=== PATIENT | male | born 1955 | race Caucasian/White ===

== ENCOUNTER 2017-12-17 23:42 | Emergency (ER) | payer OTHER ==
[~2017-12-17] VITALS: Ht 182.9 cm; Wt 104.3 kg
[~2017-12-17 23:42] MED LIST: ASPI-630 PO; CIPR500T PO; HYDR50TA6 PO; PHEN-443 PO; TAMS0.4C2 PO
--- NOTE | 2017-12-18 00:18 | PHYS DOC ---
Past History Past Medical History: Hypertension, Prostatitis, Other Past Surgical History: Tonsillectomy Alcohol Use: Heavy Drug Use: None Adult General Chief Complaint Chief Complaint: URINARY RETENTION HPI HPI Patient is a 62 year old male who presents with complaint of urinary retention. Patient states his symptoms started earlier this evening. Patient states that he is having a significant amount of lower abdominal pressure at this time. Patient has history of benign prostatic hyperplasia and has had previous episodes of urinary retention. Patient's last episode took place approximately one year ago. Patient states that he has followed with Dr. Lundberg of urology in the past for his previous episodes. The patient states that he is currently on twice daily Flomax and states that he is taking the maximum dose daily. Patient denies any fever, dysuria, nausea, or vomiting and states that he felt that his baseline state of health before this evening. Review of Systems Review of Systems Constitutional: Denies fever or chills [] Eyes: Denies change in visual acuity, redness, or eye pain [] HENT: Denies nasal congestion or sore throat [] Respiratory: Denies cough or shortness of breath [] Cardiovascular: Denies chest pain or edema[] GI: Denies abdominal pain, nausea, vomiting, bloody stools or diarrhea [] : Urinary retention[] Musculoskeletal: Denies back pain or joint pain [] Integument: Denies rash or skin lesions [] Neurologic: Denies headache, focal weakness or sensory changes [] All other systems were reviewed and found to be within normal limits, except as documented in this note. Allergies Allergies Allergies Coded Allergies Type Severity Reaction Last Updated Verified Penicillins Allergy Intermediate 02/17/16 Yes Physical Exam Physical Exam Constitutional: Alert, afebrile, appears in [id number] discomfort. [] HENT: Normocephalic, atraumatic, bilateral external ears normal, oropharynx moist, no oral exudates, nose normal. [] Eyes: PERRLA, EOMI, conjunctiva normal, no discharge. [] Neck: Normal range of motion, no tenderness, supple, no stridor. [] Cardiovascular:Heart rate regular rhythm, no murmur [] Lungs & Thorax: Bilateral breath sounds clear to auscultation [] Abdomen: Bowel sounds normal, soft, palpable distended bladder in suprapubic region of abdomen no masses, no pulsatile masses. [] Skin: Warm, dry, no erythema, no rash. [] Back: No tenderness, no CVA tenderness. [] Extremities: No tenderness, no cyanosis, no clubbing, ROM intact, no edema. [] Neurologic: Alert and oriented X 3, normal motor function, normal sensory function, no focal deficits noted. [] EKG EKG Not performed[] Radiology/Procedures Radiology/Procedures Not performed[] Course & Med Decision Making Course & Med Decision Making Pertinent Labs and Imaging studies reviewed. (See chart for details) The patient had a Hendrix catheter placed in the emergency department with immediate output of 650 mL of urine. Patient symptoms have improved. Patient states he feels much better. The patient was converted to a leg bag for his Hendrix catheter and will be discharged with a Hendrix catheter in place with recommendation to follow-up with urology in the next 5-7 days for reevaluation. Advised return emergency department for any worsening symptoms. Patient voiced understanding and in agreement with treatment plan. Dragon Disclaimer Dragon Disclaimer This electronic medical record was generated, in whole or in part, using a voice recognition dictation system. Departure Departure: Impression: Primary Impression: Urinary retention Disposition: HOME, SELF-CARE Condition: IMPROVED Referrals: PCP,UNKNOWN (PCP) DARLENE AMAYA MD Patient Instructions: Urinary Retention, Acute, Male Additional Instructions: Follow-up with urology in the next 5-7 days for reevaluation. Return to the emergency department for any worsening symptoms. Scripts Ciprofloxacin Hcl (CIPRO) 250 Mg Tablet 1 TAB PO BID, #10 TAB Prov: BOBO LOYA MD 12/18/17 BOBO LOYA MD Dec 18, 2017 00:18
[2017-12-18 00:41] LABS: CALCIUM 8.6 mg/dL (8.5-10.1); GFR 75.2; POTASSIUM 3.5 mmol/L (3.5-5.1)
[2017-12-18 00:47] LABS: BACTERIA,URINE 0 /HPF (0-FEW); BILIRUBIN,URINE NEG (NEG); CLARITY,URINE CLEAR; COLOR,URINE YELLOW; GLUCOSE,URINE NEG (NEG); NITRITE,URINE NEG (NEG); RBC,URINE 0 /HPF (0-2); SQUAMOUS EPITHELIAL CELL,UR OCC /LPF; UROBILINOGEN,URINE 0.2 mg/dL (0.2 mg/dL); WBC,URINE RARE /HPF (0-4)
[2017-12-18] MEDS ORDERED: CIPR250T30 PO (00:54)
[2017-12-18 01:10] VITALS: BP 120/75
== END 2017-12-18 01:12 | disposition home or self-care (01) ==
LOC: ER 23:42
DX: R33.9 Retention of urine, unspecified (principal); N40.1 Benign prostatic hyperplasia with lower urinary tract symptoms; I10 Essential (primary) hypertension; F10.20 Alcohol dependence, uncomplicated; Z88.0 Allergy status to penicillin
CPT/HCPCS: 36415; 51702; 80048; 81001; 99284-25

== ENCOUNTER 2017-12-22 23:40 | Emergency (ER) | payer OTHER ==
[~2017-12-22] VITALS: Ht 182.9 cm; Wt 108.3 kg
[2017-12-22 23:40] VITALS: BP 142/89
[~2017-12-22 23:40] MED LIST changes: +CIPR250T30 PO
--- NOTE | 2017-12-22 23:58 | PHYS DOC ---
Past History Past Medical History: Hypertension, Prostatitis, Other Past Surgical History: Tonsillectomy Alcohol Use: Heavy Drug Use: None Adult General Chief Complaint Chief Complaint: URINARY RETENTION HPI HPI Patient is a 62-year-old male presents with complaints of urinary retention. Approximately a week ago the patient had a Hendrix placed because of urinary retention problems went to see his doctor today and they had the Hendrix removed. Patient was doing well initially but then shortly before arrival to the ER he started having problems with voiding so he came over as he couldn't urinate. Patient has not complaints Review of Systems Review of Systems Constitutional: Denies fever or chills [] HENT: No complaints Respiratory: No complaints Cardiovascular: No complaints GI: No complaints : Urinary retention Musculoskeletal: Denies back pain or joint pain [] Integument: Denies rash or skin lesions [] Neurologic: Denies headache, focal weakness or sensory changes [] All other systems were reviewed and found to be within normal limits, except as documented in this note. Allergies Allergies Allergies Coded Allergies Type Severity Reaction Last Updated Verified Penicillins Allergy Intermediate 02/17/16 Yes Physical Exam Physical Exam Constitutional: Well developed, well nourished, no acute distress, non-toxic appearance. [] HENT: Normocephalic, atraumatic, Eyes: EOMI, conjunctiva normal, no discharge. [] Neck: Normal range of motion, trachea Midline, no stridor. [] Cardiovascular:Heart rate regular rhythm, no murmur, normal perfusion Lungs & Thorax: Bilateral breath sounds clear to auscultation, no tachypnea Abdomen: Bowel sounds normal, soft, no tenderness, no masses, no pulsatile masses. : No lesions, no swelling, no discharge [] Skin: Warm, dry, no erythema, no rash. [] Back: Normal range of motion Extremities: No tenderness, no DVT, ROM intact, no edema. [] Neurologic: Alert and oriented X 3, normal motor function, ambulates in the ED with normal gait and without assistance, no focal deficits noted. [] Psychologic: Affect normal, judgement normal, mood normal. [] EKG EKG [] Radiology/Procedures Radiology/Procedures [] Course & Med Decision Making Course & Med Decision Making Pertinent Labs and Imaging studies reviewed. (See chart for details) [] Dragon Disclaimer Dragon Disclaimer This electronic medical record was generated, in whole or in part, using a voice recognition dictation system. Departure Departure: Impression: Primary Impression: Urinary retention Disposition: HOME, SELF-CARE Condition: STABLE Referrals: PCP,UNKNOWN (PCP) Please follow with your PCP or urologist in 2 days and discuss this ED visit Patient Instructions: Hendrix Catheter Care, Adult Beatris PICKENS MD Dec 22, 2017 23:58
[2017-12-23 00:20] LABS: BACTERIA,URINE 0 /HPF (0-FEW); BILIRUBIN,URINE NEG (NEG); CLARITY,URINE CLEAR; COLOR,URINE YELLOW; GLUCOSE,URINE NEG (NEG); NITRITE,URINE NEG (NEG); UROBILINOGEN,URINE 0.2 mg/dL (0.2 mg/dL); WBC,URINE 0 /HPF (0-4)
== END 2017-12-23 00:27 | disposition home or self-care (01) ==
LOC: ER 23:40
DX: R33.9 Retention of urine, unspecified (principal); I10 Essential (primary) hypertension; F10.20 Alcohol dependence, uncomplicated; Z88.0 Allergy status to penicillin
CPT/HCPCS: 51702; 81001; 99284

== ENCOUNTER 2019-02-21 13:08 | Emergency (ER) | payer MEDICARE, OTHER ==
[~2019-02-21] VITALS: Ht 182.9 cm; Wt 104.3 kg
[2019-02-21 13:08] VITALS: BP 123/73
[2019-02-21] MEDS ORDERED: IBUPROFEN 600 MG TABLET. PO ONE (13:45)
--- NOTE | 2019-02-21 14:24 | RAD ---
Examination: 3 views of the right foot History: History of right foot pain Comparison: None available. Findings: The alignment of the tarsometatarsal joints, metatarsophalangeals, interphalangeal joints grossly appears unremarkable. There is no acute fracture or dislocation identified. Impression: No acute osseous findings.
[2019-02-21] MEDS ORDERED: MELO7.5T29 PO (14:45)
--- NOTE | 2019-02-21 14:45 | PHYS DOC ---
Past History Past Medical History: Hypertension, Prostatitis, Other Past Surgical History: Tonsillectomy Alcohol Use: Heavy Drug Use: None Adult General Chief Complaint Chief Complaint: FOOT INJURY PAIN HPI HPI Patient is a 63-year-old male presents complaining of right foot pain. Some tenderness course the night patient got out of bed and kicked the metal frame of his bed accidentally. He has been able to walk on it with increased pain. No home medicines were taken. No knee or ankle pain. No bleeding. Pain is moderate in intensity.[] Review of Systems Review of Systems Constitutional: Denies fever or chills [] Eyes: Denies change in visual acuity, redness, or eye pain [] HENT: Denies nasal congestion or sore throat [] Respiratory: Denies cough or shortness of breath [] Cardiovascular: No chest pain or palpitations[] GI: Denies abdominal pain, nausea, vomiting, bloody stools or diarrhea [] : Denies dysuria or hematuria [] Musculoskeletal: Denies back pain, see history of present illness[] Integument: Denies rash or skin lesions [] Neurologic: Denies headache, focal weakness or sensory changes [] Endocrine: Denies polyuria or polydipsia [] All other systems were reviewed and found to be within normal limits, except as documented in this note. Current Medications Current Medications Current Medications Medications (Trade) Dose Ordered Sig/Juliet Start Time Stop Time Status Last Admin Dose Admin Ibuprofen (Motrin) 600 mg 1X ONCE 02/21/19 13:45 02/21/19 13:52 DC 02/21/19 13:46 600 MG Allergies Allergies Allergies Coded Allergies Type Severity Reaction Last Updated Verified Penicillins Allergy Intermediate 02/17/16 Yes Physical Exam Physical Exam Constitutional: Well developed, well nourished, no acute distress, non-toxic appearance. [] HENT: Normocephalic, atraumatic, bilateral external ears normal, oropharynx moist, no oral exudates, nose normal. [] Eyes: PERRLA, EOMI, conjunctiva normal, no discharge. [] Neck: Normal range of motion, no tenderness, supple, no stridor. [] Cardiovascular:Heart rate regular rhythm, no murmur [] Lungs & Thorax: Bilateral breath sounds clear to auscultation [] Abdomen: Not examined[] Skin: Warm, dry, no erythema, no rash. [] Back: No tenderness, no CVA tenderness. [] Extremities: Right foot has tenderness medial aspect, along the metatarsal. There is no laxity. Patient has full active range of motion of the toes as well as the ankle joint. Patient is distally neurovascularly intact. No pain with axial loading. A joint above and joined below were evaluated and were normal. The other 3 extremities show: No tenderness, no cyanosis, no clubbing, ROM inta ct, no edema. [] Neurologic: Alert and oriented X 3, normal motor function, normal sensory function, no focal deficits noted. [] Psychologic: Affect normal, judgement normal, mood normal. [] Current Patient Data Vital Signs Vital Signs Date Time Temp Pulse Resp B/P (MAP) Pulse Ox O2 Delivery O2 Flow Rate FiO2 02/21/19 13:08 98.9 78 20 96 Room Air EKG EKG [] Radiology/Procedures Radiology/Procedures PROCEDURE: FOOT RIGHT 3V Examination: 3 views of the right foot History: History of right foot pain Comparison: None available. Findings: The alignment of the tarsometatarsal joints, metatarsophalangeals, interphalangeal joints grossly appears unremarkable. There is no acute fracture or dislocation identified. Impression: No acute osseous findings.[] Course & Med Decision Making Course & Med Decision Making Pertinent Labs and Imaging studies reviewed. (See chart for details) ED course: Patient arrived, was placed in bed, and tolerated exam well. He was transported to and from radiology with any complications. He did get pain relief with the oral medications administered. After the return of the imaging findings, these were discussed with the patient voiced understanding. He was placed in a postop shoe to help with immobilization. He was distal neurovascularly intact after this application. He was discharged in improved co ndition. Medical decision making: There is no evidence of a fracture or dislocation. No evidence of neurologic or vascular compromise. No evidence of intractable pain. No evidence of gout or osteomyelitis.[] Dragon Disclaimer Dragon Disclaimer This electronic medical record was generated, in whole or in part, using a voice recognition dictation system. Departure Departure: Impression: Primary Impression: Contusion of right foot Disposition: HOME, SELF-CARE Condition: IMPROVED Referrals: BETTYE SCHILLING MD (PCP) Follow-up in 2 days Patient Instructions: Foot Contusion Additional Instructions: Follow-up with your regular doctor in 2 days. Walk as tolerated. Return to the ER if worsening pain or any other concerns. Scripts Meloxicam (MELOXICAM) 7.5 Mg Tablet 7.5 MG PO DAILY for PAIN, #20 TAB Prov: DERREK TRONCOSO DO 02/21/19 Problem Qualifiers Primary Impression: Contusion of right foot Encounter type: initial encounter Qualified Codes: S90.31XA - Contusion of right foot, initial encounter DERREK TRONCOSO DO Feb 21, 2019 14:45
== END 2019-02-21 14:51 | disposition home or self-care (01) ==
LOC: ER 13:08
DX: S90.31XA Contusion of right foot, initial encounter (principal); I10 Essential (primary) hypertension; F10.20 Alcohol dependence, uncomplicated; Z88.0 Allergy status to penicillin; Y90.9 Presence of alcohol in blood, level not specified; W22.03XA Walked into furniture, initial encounter; Y93.89 Activity, other specified; Y92.89 Other specified places as the place of occurrence of the external cause; Y99.8 Other external cause status
CPT/HCPCS: 73630; 99284

== ENCOUNTER → 2019-07-27 | Outpatient (CLI) | payer MEDICARE, OTHER ==
[~2019-07-27] MED LIST changes: +MELO7.5T29 PO
--- NOTE | 2019-07-27 12:10 | CARD ---
MR#: [id number] Date of Study: 07/27/2019 Ordering Physician: BETTYE SCHILLING, Referring Physician: BETTYE SCHILLING, Tech: APPROVED REPORT EXAM: Two-dimensional and M-mode echocardiogram with Doppler and color Doppler. INDICATION Arrhythmia Tachycardia RISK FACTORS Hypertension Hyperlipidemia Previous smoker 2D DIMENSIONS RVDd3.8 (2.9-3.5cm)Left Atrium(2D)3.5 (1.6-4.0cm) IVSd1.2 (0.7-1.1cm)Aortic Root(2D)3.8 (2.0-3.7cm) LVDd5.2 (3.9-5.9cm)LVOT Diameter2.2 (1.8-2.4cm) PWd1.0 (0.7-1.1cm)LVDs3.2 (2.5-4.0cm) FS (%) 38.0 %SV88.6 ml LVEF(%)67.8 (>50%) Aortic Valve AoV Peak Joon.115.3cm/sAoV VTI23.2cm AO Peak GR.5.3mmHgLVOT Peak Joon.96.4cm/s LVOT VTI 15.67cmAO Mean GR.3mmHg JAZ (VMAX)3.69ya7HQZ (VTI)2.66cm2 Mitral Valve MV E Gpgmvtpj867.4cm/sMV DECEL [id number] MV A Ecbiuowi19.6cm/sE/A Ratio3.4 Pulmonary Valve PV Peak Euebkvpl63.3cm/sPV Peak Grad.3mmHg Tricuspid Valve RAP [id number] Peak Gr.20mmHg [id number] Pulmonary Vein S1 Zkmwhujk05.3cm/sD2 Cjanbqyj04.0cm/s LEFT VENTRICLE The left ventricle is normal size. There is mild concentric left ventricular hypertrophy. The left ve ntricular systolic function is normal and the ejection fraction is within normal range. The Ejection Fraction is 55%. There is normal LV segmental wall motion. Tissue Doppler imaging reveals moderate le ft ventricular diastolic dysfunction. RIGHT VENTRICLE The right ventricle is normal size. There is normal right ventricular wall thickness. The right ventr icular systolic function is normal. ATRIA The left atrium size is normal. The right atrium is borderline dilated. The interatrial septum is int act with no evidence for an atrial septal defect or patent foramen ovale as noted on 2-D or Doppler i maging. AORTIC VALVE The aortic valve is normal in structure and function. Doppler and Color Flow revealed no significant aortic regurgitation. There is no significant aortic valvular stenosis. MITRAL VALVE The mitral valve is normal in structure and function. There is no evidence of mitral valve prolapse. There is no mitral valve stenosis. Doppler and Color-flow revealed trace mitral regurgitation. TRICUSPID VALVE The tricuspid valve is normal in structure and function. Doppler and Color Flow revealed trace tricus pid regurgitation with an estimated PAP of 28 mmHg. There is no tricuspid valve prolapse or vegetatio n. PULMONIC VALVE The pulmonic valve is not well visualized. Doppler and Color Flow revealed no pulmonic valvular regur gitation. There is no pulmonic valvular stenosis. GREAT VESSELS The aortic root is borderline dilated. The IVC is dilated. PERICARDIAL EFFUSION There is no evidence of significant pericardial effusion. Critical Notification Critical Value: No <Conclusion> The left ventricular systolic function is normal and the ejection fraction is within normal range. Th e Ejection Fraction is 55%. There is normal LV segmental wall motion. Technically difficult study Signed by : Bakari Stanford, Electronically Approved : 07/27/2019 12:09:56
== END | disposition home or self-care (01) ==
LOC: ECHO 10:41
PROVIDERS: ATTEND Family Medicine
DX: I11.9 Hypertensive heart disease without heart failure (principal)
CPT/HCPCS: 93306

== ENCOUNTER 2019-07-28 17:41 | Emergency (ER) | payer MEDICARE, OTHER ==
[~2019-07-28] VITALS: Ht 182.9 cm; Wt 108.3 kg
[2019-07-28] MEDS ORDERED: IV NORMAL SALINE 1,000ML 1,000 ML IV SCH (18:04)
--- NOTE | 2019-07-28 18:04 | EKG ---
[address] [address] Test Date: 2019-07-28 Test Time: 18:00:42 Pat Name: GALINDO BHAKTA Department: Room: Gender: M Ham Sawyer: ERIC : 1955 Requested By: SARAH AHSRAF Order Number: [id number] Reading MD: Measurements Intervals [place] Rate: 115 P: 48 NM: 136 QRS: -42 QRSD: 90 T: 59 QT: 320 QTc: 444 Interpretive Statements SINUS TACHYCARDIA ABNORMAL LEFT AXIS DEVIATION S1,S2,S3 PATTERN LEFT ANTERIOR FASCICULAR BLOCK ABNORMAL ECG RI6.01 No previous ECG available for comparison
--- NOTE | 2019-07-28 18:13 | PHYS DOC ---
Past History Past Medical History: High Cholesterol, Hypertension, Prostatitis, Other Additional Past Medical Histor: BPH Past Surgical History: Tonsillectomy Smoking: Non-smoker Alcohol Use: Heavy Drug Use: None Adult General Chief Complaint Chief Complaint: LOWER EXTREMITY SWELLING HPI HPI patient is a pleasant 64-year-old male who presents to the emergency department for evaluation. He states he has had tachycardia for the past month and a half or so, and has been seen by his primary care provider and undergone a workup. He has had his thyroid checked, as well as other blood testing and had an echocardiogram done yesterday, which showed normal left ventricular function, mildly increased pulmonary artery pressure, but no other gross abnormality, per the report that I have reviewed. The patient went to see his PCP again today in follow-up and was sent to the emergency department for evaluation, as he has also been having some increasing swelling in his left leg, nose concern for DVT or PE. The patient states that he will sometimes feel his heart palpitating, has had some occasional shortness of breath, but nothing out of the ordinary, and he denies any current chest pain, pleuritic pain, shortness of breath, dizziness or lightheadedness. He has not had any fevers or chills. There are no alleviating or exacerbating factors to his symptoms. He does take metoprolol. He states that his blood pressure has been running somewhat higher than normal recently, despite him taking his blood pressure medication. The patient's PCP sent him down to the emergency department for evaluation for possible DVT and PE. Review of Systems Review of Systems Constitutional: Denies fever or chills [] Eyes: Denies change in visual acuity, redness, or eye pain [] HENT: Denies nasal congestion or sore throat [] Respiratory: Denies cough or shortness of breath [] Cardiovascular: No additional information not addressed in HPI [] GI: Denies abdominal pain, nausea, vomiting, bloody stools or diarrhea [] : Denies dysuria or hematuria [] Musculoskeletal: Denies back pain or joint pain [] Integument: Denies rash or skin lesions [] Neurologic: Denies headache, focal weakness or sensory changes [] Endocrine: Denies polyuria or polydipsia [] All other systems were reviewed and found to be within normal limits, except as documented in this note. Current Medications Current Medications Current Medications Medications (Trade) Dose Ordered Sig/Juliet Start Time Stop Time Status Last Admin Dose Admin Iohexol (Omnipaque 350 Mg/ml) 100 ml 1X ONCE 07/28/19 18:15 07/28/19 18:16 UNV Sodium Chloride 1,000 ml @ 1,000 mls/hr Q1H 07/28/19 18:04 07/28/19 19:03 UNV Allergies Allergies Allergies Coded Allergies Type Severity Reaction Last Updated Verified Penicillins Allergy Intermediate 02/17/16 Yes Physical Exam Physical Exam PHYSICAL EXAM: CONSTITUTIONAL: Well developed, well nourished HEAD: normocephalic, atraumatic EENT: PERRL, EOMI. Conjunctivae normal color, sclerae non-icteric; moist mucous membranes. NECK: Supple, non-tender; no meningismus. LUNGS: Lungs CTA, breathing even and unlabored. Normal air movement. HEART: Regular rate and rhythm, no murmur CHEST: No deformity; non-tender ABDOMEN: The abdomen is soft, and non-tender, no masses or bruits. EXTREM: Normal ROM; no deformity, no calf tenderness. Normal pulses palpable in all extremities. There is trace left-sided pedal edema. SKIN: No rash; no diaphoresis NEURO: Alert; normal speech and cognition; CN's grossly intact; strength grossly intact without focal deficit. BACK: No CVA TTP. Current Patient Data Lab Results Current Medications Medications (Trade) Dose Ordered Sig/Juliet Route PRN Reason Start Time Stop Time Status Last Admin Dose Admin Sodium Chloride 1,000 ml @ 1,000 mls/hr Q1H IV 07/28/19 18:04 07/28/19 19:03 Iohexol (Omnipaque 350 Mg/ml) 100 ml 1X ONCE IV 07/28/19 18:15 07/28/19 18:16 UNV Current Medications Medications (Trade) Dose Ordered Sig/Juliet Route PRN Reason Start Time Stop Time Status Last Admin Dose Admin Sodium Chloride 1,000 ml @ 1,000 mls/hr Q1H IV 07/28/19 18:04 07/28/19 19:03 Iohexol (Omnipaque 350 Mg/ml) 100 ml 1X ONCE IV 07/28/19 18:15 07/28/19 18:16 UNV EKG EKG Sinus tachycardia at a rate of 115 bpm, left axis deviation, normal intervals, there are no acute ischemic ST/T changes.[] Radiology/Procedures Radiology/Procedures PROCEDURE: VENOUS LOWER EXTREMITY LEFT Left lower extremity venous Doppler dated 07/28/2019. No comparison available. Clinical data indication: Left lower extremity swelling for one month. FINDINGS: Grayscale, color-flow and spectral waveform analysis performed to include the deep venous system of the left lower extremity. There is normal compressibility, phasicity and augmentation of flow. No filling defects are seen. Additional note is made of prominent venous varicosities at the medial distal calf. IMPRESSION: No evidence of left lower extremity deep vein thrombosis.[] PROCEDURE: CT ANGIOGRAPHY CHEST CTA chest with contrast dated 07/28/2019. No comparison available. Clinical data indication: Tachycardia leg swelling and evaluate for PE. TECHNIQUE: Contiguous axial imaging of the chest performed following the intravenous administration of 100 cc Omnipaque 350. Study was performed as dedicated PE protocol with thin cut coronal MIPS 3-D reconstruction. One or more of the following individualized dose reduction techniques were utilized for this examination: 1. Automated exposure control 2. Adjustment of the mA and/or kV according to patient size 3. Use of iterative reconstruction technique. FINDINGS: Contrast bolus is adequate. No evidence of central, lobar or segmental pulmonary embolus. Subsegmental branches are not well evaluated based on technique. Heart size upper limits of normal. No pericardial effusion. Coronary artery calcifications. No mediastinal, hilar or axillary lymphadenopathy. Thyroid gland unremarkable. Central airways are patent. Lungs are clear. No consolidation or pleural effusion. No pneumothorax. Scattered calcified granuloma. Limited images of upper abdomen unremarkable. There is diffuse low-density of the liver suggesting mild fatty infiltration. Bone windows show no acute findings. IMPRESSION: 1. No evidence of central, lobar or segmental pulmonary embolus. 2. Clear lungs. 3. Coronary artery calcifications. Course & Med Decision Making Course & Med Decision Making Pertinent Lab studies reviewed. (See chart for details) Patient's condition remains a stable. Heart rate 105. I discussed test results with the patient, the need for further outpatient workup. I do not see that thyroid function test were ordered at this laboratory, possibly they will or that another laboratory. Another possibility is workup for pheochromocytoma, and I discussed this with the patient. Return precautions were discussed in detail. Dragon Disclaimer Dragon Disclaimer This electronic medical record was generated, in whole or in part, using a voice recognition dictation system. Departure Departure: Impression: Primary Impression: Sinus tachycardia Additional Impression: Pedal edema Disposition: 01 HOME, SELF-CARE Condition: STABLE Referrals: BETTYE SCHILLING MD (PCP) ALPA SHEA MD Patient Instructions: Nonspecific Tachycardia, Peripheral Edema Additional Instructions: It is important that you obtain further outpatient evaluation for the cause of your symptoms. If your thyroid function has not been checked, this should be done, along with evaluation for possible pheochromocytoma, which could cause high heart rate and high blood pressure. Problem Qualifiers SARAH ASHRAF MD Jul 28, 2019 18:13
[2019-07-28 18:24] LABS: BASO # 0.1 x10^3/uL (0.0-0.2); BASO % 1 % (0-3); EOS # 0.1 x10^3/uL (0.0-0.7); EOS % 1 % (0-3); HEMATOCRIT 43.6 % (39.0-53.0); HEMOGLOBIN 14.9 g/dL (13.0-17.5); LYMPH # 2.7 x10^3/uL (1.0-4.8); LYMPH % 29 % (24-48); MEAN CORPUSCULAR HEMOGLOBIN 32 pg (25-35); MEAN CORPUSCULAR HGB CONC 34 g/dL (31-37); MEAN CORPUSCULAR VOLUME 94 fL (79-100); MONO % 11 % (0-9); NEUT # 5.4 x10^3uL (1.8-7.7); NEUT % 58 % (31-73); PLATELET COUNT 219 x10^3/uL (140-400); RED BLOOD COUNT 4.63 x10^6/uL (4.30-5.70); WHITE BLOOD COUNT 9.3 x10^3/uL (4.0-11.0)
[2019-07-28] MEDS ORDERED: IOHEXOL 350 MG/ML 100 ML VIAL. IV ONE (18:30)
[2019-07-28 18:49] LABS: ALBUMIN 3.8 g/dL (3.4-5.0); ALBUMIN/GLOBULIN RATIO 1.1 (1.0-1.7); CALCIUM 9.5 mg/dL (8.5-10.1); CREATININE 1.2 mg/dL (0.7-1.3); GFR 60.6; MAGNESIUM 1.9 mg/dL (1.8-2.4); TOTAL BILIRUBIN 0.5 mg/dL (0.2-1.0); TOTAL PROTEIN 7.3 g/dL (6.4-8.2)
--- NOTE | 2019-07-28 19:12 | RAD ---
Left lower extremity venous Doppler dated 07/28/2019. No comparison available. Clinical data indication: Left lower extremity swelling for one month. FINDINGS: Grayscale, color-flow and spectral waveform analysis performed to include the deep venous system of the left lower extremity. There is normal compressibility, phasicity and augmentation of flow. No filling defects are seen. Additional note is made of prominent venous varicosities at the medial distal calf. IMPRESSION: No evidence of left lower extremity deep vein thrombosis. Electronically signed by: Pal Adames MD (07/28/2019 7:09 PM) [facility]
--- NOTE | 2019-07-28 20:21 | RAD ---
CTA chest with contrast dated 07/28/2019. No comparison available. Clinical data indication: Tachycardia leg swelling and evaluate for PE. TECHNIQUE: Contiguous axial imaging of the chest performed following the intravenous administration of 100 cc Omnipaque 350. Study was performed as dedicated PE protocol with thin cut coronal MIPS 3-D reconstruction. One or more of the following individualized dose reduction techniques were utilized for this examination: 1. Automated exposure control 2. Adjustment of the mA and/or kV according to patient size 3. Use of iterative reconstruction technique. FINDINGS: Contrast bolus is adequate. No evidence of central, lobar or segmental pulmonary embolus. Subsegmental branches are not well evaluated based on technique. Heart size upper limits of normal. No pericardial effusion. Coronary artery calcifications. No mediastinal, hilar or axillary lymphadenopathy. Thyroid gland unremarkable. Central airways are patent. Lungs are clear. No consolidation or pleural effusion. No pneumothorax. Scattered calcified granuloma. Limited images of upper abdomen unremarkable. There is diffuse low-density of the liver suggesting mild fatty infiltration. Bone windows show no acute findings. IMPRESSION: 1. No evidence of central, lobar or segmental pulmonary embolus. 2. Clear lungs. 3. Coronary artery calcifications. Electronically signed by: Pal Adames MD (07/28/2019 8:18 PM) [facility]
[2019-07-28 20:48] VITALS: BP 153/101
== END 2019-07-28 20:48 | disposition home or self-care (01) ==
LOC: ER 17:41
DX: R00.0 Tachycardia, unspecified (principal); R60.0 Localized edema; E78.00 Pure hypercholesterolemia, unspecified; I10 Essential (primary) hypertension; F10.20 Alcohol dependence, uncomplicated; Y90.9 Presence of alcohol in blood, level not specified
CPT/HCPCS: 36415; 71275; 80053; 82553; 83735; 83880; 84484; 85025; 85610; 85730; 93005; 93971; 99285; Q9967; J7030

== ENCOUNTER → 2021-04-16 | Outpatient (CLI) | payer MEDICARE, OTHER ==
[~2021-04-16] MED LIST changes: -CIPR500T PO; +CIPR500T2 PO; -HYDR50TA6 PO; +HYDR50TA9 PO
--- NOTE | 2021-04-16 13:57 | RAD ---
EXAM: ULTRASOUND ABDOMINAL AORTA. HISTORY: Abdominal aortic aneurysm screening. Hypertension, smoking. COMPARISON: None. FINDINGS: Sonographic evaluation of the abdominal aorta and common iliac arteries was performed. Proximally, the abdominal aorta is obscured by bowel gas. In its midportion, 2.3 x 2.1 cm. Distally, 2.0 x 1.9 cm. The right common iliac artery measures 1.2 x 1.0 cm. The left measures 1.4 x 1.1 cm. There is no evidence of stenosis on Doppler. IMPRESSION: 1. The proximal abdominal aorta is obscured. No infrarenal abdominal aortic aneurysm. Electronically signed by: Conrad Sood MD (04/16/2021 1:54 PM) [facility]
== END ==
LOC: US 08:26
PROVIDERS: ATTEND Family Medicine
DX: I10 Essential (primary) hypertension (principal); Z87.891 Personal history of nicotine dependence; Z00.00 Encounter for general adult medical examination without abnormal findings
CPT/HCPCS: 76770